=== PATIENT | male | born 1990 | race Hispanic/Latino ===

== ENCOUNTER 2018-04-25 22:35 | Emergency (ER) | payer MEDICAID ==
[2018-04-25 22:52] VITALS: BMI 26.3
[2018-04-25 22:54] VITALS: RESP 18; TEMP 97.6
--- NOTE | 2018-04-25 23:06 | ED PDOC ---
Arrival/HPI - General Chief Complaint: Abnormal Skin Integrity Time Seen by Provider: 04/25/18 22:52 Historian: Patient - History of Present Illness Narrative History of Present Illness (Text): 04/25/18 23:03 This 28 yo male who denies pmh presents to this ED c/o left elbow abrasion x 4 hours. Patient stated during a ride at [employer], he scraped his elbow. Patient does not know last Tetanus shot. Patient requesting a booster. Denies other somatic complains. Time/Duration: Other (see hpi) Context: Other ([place]) Past Medical History - Provider Review Nursing Documentation Reviewed: Yes - Endocrine/Metabolic Hx Diabetes Mellitus Type 1: Yes Hx Hypothyroidism: Yes - Hematological/Oncological Hx Blood Disorders: No - Integumentary Hx Dermatological Disorder: No - Musculoskeletal/Rheumatological Hx Musculoskeletal Disorders: No - Gastrointestinal Hx Gastrointestinal Disorders: No - Genitourinary/Gynecological Hx Genitourinary Disorders: No - Psychiatric Hx Psychophysiologic Disorder: No Hx Substance Use: No - Anesthesia Hx Anesthesia: No Hx Anesthesia Reactions: No Hx Malignant Hyperthermia: No Family/Social History - Physician Review Nursing Documentation Reviewed: Yes Family/Social History: Other (noncontributory) Smoking Status: Never Smoked Hx Alcohol Use: No Hx Substance Use: No Allergies/Home Meds Allergies/Adverse Reactions: Allergies No Known Allergies Allergy (Verified 04/25/18 22:52) Home Medications: Home Meds Medication Instructions Recorded Confirmed Levothyroxine [Synthroid] 50 mcg PO DAILY 04/25/18 04/25/18 Review of Systems - Review of Systems Constitutional: Normal. absent: Fatigue, Weight Change, Fevers, Night Sweats Eyes: Normal ENT: Normal Respiratory: Normal Cardiovascular: Normal Gastrointestinal: Normal Genitourinary Male: Normal Musculoskeletal: Normal Skin: Other (see hpi) Neurological: Normal Endocrine: Normal Hemo/Lymphatic: Normal Psychiatric: Normal Physical Exam Vital Signs Temp Pulse Resp BP Pulse Ox 04/25/18 22:54 97.6 F 81 18 134/74 99 Temperature: Afebrile Blood Pressure: Normal Pulse: Regular Respiratory Rate: Normal Appearance: Positive for: Well-Appearing, Non-Toxic, Comfortable Pain Distress: None Mental Status: Positive for: Alert and Oriented X 3 - Systems Exam Head: Present: Atraumatic, Normocephalic Mouth: Present: Moist Mucous Membranes Neck: Present: Normal Range of Motion Back: Present: Normal Inspection. No: CVA Tenderness Upper Extremity: Present: Normal ROM, NORMAL PULSES, Neurovascularly Intact, Capillary Refill < 2s, Other ((+) left posterior 1 cm abrsion. No bony tenderness). No: Cyanosis, Edema, Tenderness, Swelling Lower Extremity: Present: Normal Inspection, Normal ROM. No: Edema Neurological: Present: GCS=15, CN II-XII Intact, Speech Normal, Motor Func Grossly Intact, Normal Sensory Function, Normal Cerebellar Funct, Gait Normal Skin: Present: Warm, Dry, Normal Color. No: Rashes Psychiatric: Present: Alert, Oriented x 3, Normal Insight, Normal Concentration Medical Decision Making ED Course and Treatment: 04/25/18 23:12 Re-evaluation. Patient feels better. Discussed results and plan with patient who expresses understanding. All questions answered and there is agreement with the plan to discharge home with instructions. Patient stable for discharge. Return if symptoms persist or worsen Re-evaluation Time: 23:12 Reassessment Condition: Re-examined, Improved Disposition/Present on Arrival - Present on Arrival Any Indicators Present on Arrival: No History of DVT/PE: No History of Uncontrolled Diabetes: No Urinary Catheter: No History of Decub. Ulcer: No History Surgical Site Infection Following: None - Disposition Have Diagnosis and Disposition been Completed?: Yes Diagnosis: Abrasion Disposition: HOME/ ROUTINE Disposition Time: 23:12 Patient Plan: Discharge Condition: GOOD Discharge Instructions (ExitCare): Skin Abrasions Additional Instructions: Call private doctor for follow up visit in 1-2 days. Clean wound daily with soap and water, and apply OTC Neoporin ointment. Return to emergency if skin becomes infected Referrals: Skye Arellano MD [Staff Provider] - Follow up with primary [facility] [Outside] - Follow up with primary
[2018-04-25] MEDS ORDERED: TDAP Vaccine 0.5 mL Syr IM ONE (23:07)
[2018-04-26 00:35] VITALS: BP 128/82; PULSE 78; O2SAT 100
== END 2018-04-25 23:15 | disposition home or self-care (01) ==
LOC: ED 22:35
DX: S50.312A Abrasion of left elbow, initial encounter (principal); W22.8XXA Striking against or struck by other objects, initial encounter; Y92.831 Amusement park as the place of occurrence of the external cause; Z23 Encounter for immunization